=== PATIENT | female | born 2000 | race Caucasian/White ===

== ENCOUNTER 2018-07-23 15:33 | Emergency (ER) | payer OTHER ==
[2018-07-23 17:22] LABS: ADD MAN DIFF? NO
[2018-07-23 17:31] LABS: WHITE BLOOD COUNT 10.2 10^3/ul (4.8-10.8)
[2018-07-23 17:31] LABS: BASOPHILS % 0.2 % (0.0-2.0); EOSINOPHILS # 0.1 10^3/ul (0.0-0.5); EOSINOPHILS % 0.5 % (0.0-7.0); HEMATOCRIT 38.1 % (37.0-47.0); HEMOGLOBIN 12.5 g/dl (12.0-16.0); LYMPHOCYTES # 2.7 10^3/ul (0.8-2.9); LYMPHOCYTES % 26.8 % (18.0-55.0); MEAN CORPUSCULAR HEMOGLOBIN 27.5 pg (29.0-33.0); MEAN CORPUSCULAR HGB CONC 32.8 g/dl (32.0-37.0); MEAN CORPUSCULAR VOLUME 83.7 fl (72.0-104.0); MEAN PLATELET VOLUME 10.4 fl (7.4-10.4); MONOCYTE # 0.7 10^3/ul (0.3-0.9); MONOCYTES % 7.2 % (0.0-13.0); NEUTROPHIL # 6.6 10^3/ul (1.6-7.5); PLATELET COUNT 333 10^3/UL (140-415); RED BLOOD COUNT 4.55 10^6/ul (4.20-5.40); RED CELL DISTRIBUTION WIDTH 13.9 % (11.5-14.5)
[2018-07-23 17:47] LABS: ADD UMIC YES; UR ASCORBIC ACID NEGATIVE (NEGATIVE); UR BACTERIA MANY /HPF (NONE SEEN); UR BILIRUBIN (Dip) NEGATIVE (NEGATIVE); UR BLOOD (Dip) 3+ mg/dL (NEGATIVE); UR CLARITY CLOUDY (CLEAR); UR COLOR RED (YELLOW); UR GLUCOSE (Dip) NEGATIVE (NEGATIVE); UR KETONES (Dip) NEGATIVE (NEGATIVE); UR LEUKOCYTE ESTERASE (Dip) TRACE Leu/ul (NEGATIVE); UR NITRITE (Dip) POSITIVE (NEGATIVE); UR RBC 84 /HPF (0-5); UR SPECIFIC GRAVITY (Dip) 1.008 (1.003-1.030); UR SQUAMOUS EPITHELIAL CELL MODERATE /HPF (FEW); UR TOTAL PROTEIN (Dip) 2+ mg/dl (NEGATIVE); UR UROBILINOGEN (Dip) NEGATIVE (NEGATIVE); UR WBC 11 /HPF (0-5)
[2018-07-23] MEDS: ACETAMINOPHEN 325 MG TAB PO (17:50)
== END 2018-07-23 21:45 | disposition home or self-care (01) ==
LOC: FTE 15:33
DX: O23.41 Unspecified infection of urinary tract in pregnancy, first trimester (principal); O41.8X10 Other specified disorders of amniotic fluid and membranes, first trimester, not applicable or unspecified; O46.8X1 Other antepartum hemorrhage, first trimester; R10.2 Pelvic and perineal pain; Z3A.08 8 weeks gestation of pregnancy
CPT/HCPCS: 36415; 76801; 81001; 84702; 85025; 86900; 86901; 99284-25

== ENCOUNTER 2018-10-27 10:22 | Outpatient (CLI) | payer OTHER | END 2018-10-27 13:38 | disposition home or self-care (01) | LOC: OBT 10:22 → L-D 10:24 → OBT 13:38 | DX: O36.8120 Decreased fetal movements, second trimester, not applicable or unspecified (principal); Z3A.21 21 weeks gestation of pregnancy | CPT/HCPCS: 76815; 76817 ==

== ENCOUNTER 2018-12-28 19:20 | Inpatient (IN) | payer OTHER ==
[2018-12-28 20:15] LABS: ADD MAN DIFF? NO
[2018-12-28 20:19] LABS: WHITE BLOOD COUNT 9.5 10^3/ul (4.8-10.8)
[2018-12-28 20:19] LABS: BASOPHILS % 0.1 % (0.0-2.0); EOSINOPHILS # 0.1 10^3/ul (0.0-0.5); EOSINOPHILS % 1.5 % (0.0-7.0); HEMATOCRIT 32.2 % (37.0-47.0); HEMOGLOBIN 10.6 g/dl (12.0-16.0); LYMPHOCYTES # 1.9 10^3/ul (0.8-2.9); LYMPHOCYTES % 20.3 % (18.0-55.0); MEAN CORPUSCULAR HEMOGLOBIN 28.3 pg (29.0-33.0); MEAN CORPUSCULAR HGB CONC 32.9 g/dl (32.0-37.0); MEAN CORPUSCULAR VOLUME 86.1 fl (72.0-104.0); MEAN PLATELET VOLUME 9.5 fl (7.4-10.4); MONOCYTE # 0.8 10^3/ul (0.3-0.9); MONOCYTES % 8.1 % (0.0-13.0); NEUTROPHIL # 6.6 10^3/ul (1.6-7.5); NEUTROPHILS % 69.2 % (30.0-74.0); PLATELET COUNT 343 10^3/UL (140-415); RED BLOOD COUNT 3.74 10^6/ul (4.20-5.40); RED CELL DISTRIBUTION WIDTH 13.5 % (11.5-14.5)
[2018-12-28 20:36] LABS: RUPTURE FETAL MEMBRANES NEGATIVE (NEGATIVE)
[2018-12-28 21:32] LABS: ADD UMIC YES; UR ASCORBIC ACID NEGATIVE (NEGATIVE); UR BACTERIA FEW /HPF (NONE SEEN); UR BILIRUBIN (Dip) NEGATIVE (NEGATIVE); UR BLOOD (Dip) NEGATIVE (NEGATIVE); UR CLARITY CLOUDY (CLEAR); UR COLOR YELLOW (YELLOW); UR GLUCOSE (Dip) NEGATIVE (NEGATIVE); UR KETONES (Dip) NEGATIVE (NEGATIVE); UR LEUKOCYTE ESTERASE (Dip) 2+ Leu/ul (NEGATIVE); UR NITRITE (Dip) NEGATIVE (NEGATIVE); UR RBC 2 /HPF (0-5); UR SPECIFIC GRAVITY (Dip) 1.008 (1.003-1.030); UR SQUAMOUS EPITHELIAL CELL FEW /HPF (FEW); UR TOTAL PROTEIN (Dip) NEGATIVE (NEGATIVE); UR UROBILINOGEN (Dip) NEGATIVE (NEGATIVE); UR WBC 8 /HPF (0-5)
[2018-12-28] MEDS ORDERED: MAGNESIUM SULFATE 4 GM/100 ML 100 ML (21:52)
[2018-12-28] MEDS: LACTATED RINGER'S 1,000 ML IV (22:02)
[2018-12-28] MEDS: MAGNESIUM SULFATE 4 GM/100 ML 100 ML IV (22:03)
[2018-12-28] MEDS: MAGNESIUM SULFATE 20 GM/500 ML 500 ML IV (22:33)
[2018-12-28] MEDS ORDERED: ACETAMINOPHEN 325 MG TAB PO (23:30)
[2018-12-28 23:45] LABS: ALANINE AMINOTRANSFERASE 10 IU/L (13-69); ALKALINE PHOSPHATASE 119 IU/L (42-121); ANION GAP 11 (5-13); ASPARTATE AMINO TRANSFERASE 53 IU/L (15-46); BILIRUBIN,INDIRECT 0.2 mg/dl (0-1.1); BILIRUBIN,TOTAL 0.2 mg/dl (0.2-1.3); BLOOD UREA NITROGEN 7 mg/dl (7-20); CALCIUM 9.3 mg/dl (8.4-10.2); CARBON DIOXIDE 23 mmol/L (21-31); CHLORIDE 104 mmol/L (97-110); CREATININE 0.42 mg/dl (0.44-1.00); Estimated GFR > 60 mL/min (>60); GLUCOSE 73 mg/dl (70-220); POTASSIUM 3.6 mmol/L (3.5-5.1); SODIUM 138 mmol/L (135-144); TOTAL PROTEIN 6.3 g/dl (6.1-8.1)
[2018-12-28 23:46] LABS: ALBUMIN 3.5 g/dl (3.3-4.9); ALBUMIN/GLOBULIN RATIO 1.25
[2018-12-28] MEDS: BETAMET NA PHOS/AC(6 MG/ML) 2 ML INJ SYG IM (23:56)
[2018-12-29] MEDS: LACTATED RINGER'S 1,000 ML IV ×2 (05:36→17:17)
[2018-12-29] MEDS: MAGNESIUM SULFATE 20 GM/500 ML 500 ML IV (08:35)
[2018-12-29 09:02] LABS: MAGNESIUM 5.9 mg/dl (1.7-2.5)
[2018-12-29] MEDS: DOCUSATE SODIUM 100 MG CAP PO (09:14)
[2018-12-29] MEDS: PRENATAL VITAMIN PO (09:14)
[2018-12-29] MEDS: AL HYDROX/MG HYDROX/SIMETH 30 ML CUP PO (11:23)
[2018-12-29 13:39] LABS: MAGNESIUM 4.7 mg/dl (1.7-2.5)
[2018-12-29] MEDS: BETAMET NA PHOS/AC(6 MG/ML) 2 ML INJ SYG IM (14:41)
[2018-12-29 17:39] LABS: AMPHETAMINE/METHAMPHETAMINE Negative (NEGATIVE); BARBITURATES Negative (NEGATIVE); BENZODIAZEPINES Negative (NEGATIVE); CANNABINOIDS Negative (NEGATIVE); COCAINE Negative (NEGATIVE); OPIATES Negative (NEGATIVE)
[2018-12-29] MEDS: NIFEdipine 10 MG CAP PO (18:06)
[2018-12-29 18:58] LABS: MAGNESIUM 2.8 mg/dl (1.7-2.5)
[2018-12-30] MEDS: NIFEdipine 10 MG CAP PO ×4 (00:29→17:48)
[2018-12-30] MEDS: LACTATED RINGER'S 1,000 ML IV ×3 (01:25→13:48)
[2018-12-30] MEDS: AL HYDROX/MG HYDROX/SIMETH 30 ML CUP PO (07:52)
[2018-12-30] MEDS: DOCUSATE SODIUM 100 MG CAP PO (09:04)
[2018-12-30] MEDS: PRENATAL VITAMIN PO (09:04)
[2018-12-30] MEDS: BETAMET NA PHOS/AC(6 MG/ML) 2 ML INJ SYG IM (13:41)
[2018-12-30] MEDS: PROGESTERONE 100 MG CAP VAG ×2 (19:30→19:52)
== END 2018-12-30 19:50 | disposition home or self-care (01) | DRG 832 ==
LOC: OBT 19:20 → L-D 19:20 → OBT 21:25 → L-D 21:25 → PP1 23:52
PROVIDERS: Obstetrics & Gynecology
DX: O60.03 Preterm labor without delivery, third trimester (principal); O26.873 Cervical shortening, third trimester; Z3A.29 29 weeks gestation of pregnancy
CPT/HCPCS: 76815; 76817; 76818; 80053; 80307; 81001; 83735; 84112; 85025

== ENCOUNTER 2019-02-06 07:39 | Outpatient (CLI) | payer OTHER ==
[2019-02-06 11:16] LABS: ADD MAN DIFF? NO
[2019-02-06 11:22] LABS: BASOPHILS % 0.1 % (0.0-2.0); EOSINOPHILS % 0.2 % (0.0-7.0); HEMATOCRIT 33.9 % (37.0-47.0); HEMOGLOBIN 11.2 g/dl (12.0-16.0); LYMPHOCYTES # 1.7 10^3/ul (0.8-2.9); LYMPHOCYTES % 13.3 % (18.0-55.0); MEAN CORPUSCULAR HEMOGLOBIN 27.9 pg (29.0-33.0); MEAN CORPUSCULAR VOLUME 84.5 fl (72.0-104.0); MEAN PLATELET VOLUME 9.9 fl (7.4-10.4); MONOCYTE # 0.8 10^3/ul (0.3-0.9); MONOCYTES % 6.7 % (0.0-13.0); NEUTROPHIL # 9.8 10^3/ul (1.6-7.5); PLATELET COUNT 318 10^3/UL (140-415); RED BLOOD COUNT 4.01 10^6/ul (4.20-5.40); RED CELL DISTRIBUTION WIDTH 13.7 % (11.5-14.5)
[2019-02-06 11:22] LABS: WHITE BLOOD COUNT 12.4 10^3/ul (4.8-10.8)
[2019-02-06 11:32] LABS: ADD UMIC YES; UR ASCORBIC ACID NEGATIVE (NEGATIVE); UR BACTERIA FEW /HPF (NONE SEEN); UR BILIRUBIN (Dip) NEGATIVE (NEGATIVE); UR BLOOD (Dip) 3+ mg/dL (NEGATIVE); UR CLARITY CLOUDY (CLEAR); UR COLOR YELLOW (YELLOW); UR GLUCOSE (Dip) NEGATIVE (NEGATIVE); UR KETONES (Dip) NEGATIVE (NEGATIVE); UR LEUKOCYTE ESTERASE (Dip) 3+ Leu/ul (NEGATIVE); UR MUCUS FEW /HPF (NONE SEEN); UR NITRITE (Dip) NEGATIVE (NEGATIVE); UR RBC 5 /HPF (0-5); UR SPECIFIC GRAVITY (Dip) 1.013 (1.003-1.030); UR SQUAMOUS EPITHELIAL CELL FEW /HPF (FEW); UR TOTAL PROTEIN (Dip) NEGATIVE (NEGATIVE); UR UROBILINOGEN (Dip) NEGATIVE (NEGATIVE); UR WBC 45 /HPF (0-5)
[2019-02-06] MEDS: ACETAMINOPHEN 325 MG TAB PO (11:39)
== END 2019-02-06 12:55 | disposition home or self-care (01) ==
LOC: OBT 07:39 → L-D 07:41 → OBT 12:55
DX: O23.43 Unspecified infection of urinary tract in pregnancy, third trimester (principal); O62.9 Abnormality of forces of labor, unspecified; Z3A.36 36 weeks gestation of pregnancy
CPT/HCPCS: 76818; 81001; 85025; 87086

== ENCOUNTER 2019-02-25 15:19 | Inpatient (IN) | payer OTHER ==
[2019-02-25] MEDS ORDERED: OXYTOCIN 30 UNITS/LR 500 ML IV (16:00)
[2019-02-25] MEDS ORDERED: CARBOPROST 250 MCG INJ IM (16:00)
[2019-02-25] MEDS ORDERED: BUTORPHANOL 2 MG INJ IV (16:00)
[2019-02-25] MEDS ORDERED: METHYLERGONOVINE 0.2 MG INJ IM (16:00)
[2019-02-25] MEDS ORDERED: LIDOCAINE 1% (MPF) 30 ML INJ INJ (16:00)
[2019-02-25 16:03] LABS: ADD MAN DIFF? NO
[2019-02-25 16:06] LABS: BASOPHILS % 0.3 % (0.0-2.0); EOSINOPHILS % 0.2 % (0.0-7.0); HEMATOCRIT 37.2 % (37.0-47.0); LYMPHOCYTES # 2.8 10^3/ul (0.8-2.9); LYMPHOCYTES % 17.8 % (18.0-55.0); MEAN CORPUSCULAR HEMOGLOBIN 27.1 pg (29.0-33.0); MEAN CORPUSCULAR HGB CONC 32.3 g/dl (32.0-37.0); MEAN PLATELET VOLUME 10.9 fl (7.4-10.4); MONOCYTES % 6.5 % (0.0-13.0); NEUTROPHIL # 11.6 10^3/ul (1.6-7.5); NEUTROPHILS % 73.8 % (30.0-74.0); NUCLEATED RED BLOOD CELLS% 0.1 /100WBC (0.0-0.0); PLATELET COUNT 314 10^3/UL (140-415); RED BLOOD COUNT 4.43 10^6/ul (4.20-5.40); RED CELL DISTRIBUTION WIDTH 13.8 % (11.5-14.5)
[2019-02-25 16:06] LABS: WHITE BLOOD COUNT 15.7 10^3/ul (4.8-10.8)
[2019-02-25] MEDS: LACTATED RINGER'S 1,000 ML IV ×3 (16:20→22:54)
[2019-02-25 16:41] LABS: PROTIME 12.3 Sec (11.9-14.9)
[2019-02-25 16:42] LABS: PARTIAL THROMBOPLASTIN TIME 33.7 Sec (23.0-35.0)
[2019-02-25] MEDS: AMPICILLIN 2 GM/NS (PMX) 100 ML IV (16:47)
[2019-02-25] MEDS: AMPICILLIN 1 GM/NS (PMX) 50 ML IV (20:25)
[2019-02-25] MEDS ORDERED: FENTAnyl 2MCG/ML-ROPIV 0.2% 100 ML (21:24)
[2019-02-25] MEDS ORDERED: DIPHENHYDRAMINE 50 MG INJ IV (21:30)
[2019-02-25] MEDS ORDERED: NALOXONE (0.4 MG/ML) INJ IV (21:30)
[2019-02-25] MEDS ORDERED: ONDANSETRON 4 MG INJ IV (21:30)
[2019-02-26] MEDS: AMPICILLIN 1 GM/NS (PMX) 50 ML IV ×3 (00:42→07:42)
[2019-02-26] MEDS: LACTATED RINGER'S 1,000 ML IV ×2 (04:19→06:17)
[2019-02-26] MEDS: FENTAnyl 2MCG/ML-ROPIV 0.2% 100 ML BAG EPI (05:51)
[2019-02-26] MEDS: OXYTOCIN 30 UNITS/LR 500 ML IV ×3 (11:45→16:19)
[2019-02-26] MEDS: MISOPROSTOL 200 MCG TAB PR (11:47)
[2019-02-26] MEDS ORDERED: HYDROCODONE/APAP (10/325) TAB GTB (12:00)
[2019-02-26] MEDS: HYDROCODONE/APAP (10/325) TAB GTB (12:00)
[2019-02-26 15:16] LABS: RAPID PLASMA REAGIN NONREACTIVE (NR)
[2019-02-26] MEDS ORDERED: ONDANSETRON 4 MG INJ IV (17:30)
[2019-02-26] MEDS ORDERED: OXYCODONE/ASPIRIN (4.88/325) TAB PO (17:30)
[2019-02-26] MEDS ORDERED: DIPHENHYDRAMINE 50 MG INJ IV (17:30)
[2019-02-26] MEDS ORDERED: MISOPROSTOL 200 MCG TAB PR (17:30)
[2019-02-26] MEDS ORDERED: DEXTROSE 5%-LR 1,000 ML IV (17:30)
[2019-02-26] MEDS ORDERED: ZOLPIDEM 5 MG TAB PO (17:30)
[2019-02-26] MEDS ORDERED: ACETAMINOPHEN 325 MG TAB PO (17:30)
[2019-02-26] MEDS ORDERED: DIBUCAINE 1% 30 GM OINT TOP (17:30)
[2019-02-26] MEDS ORDERED: METHYLERGONOVINE 0.2 MG INJ IM (17:30)
[2019-02-26] MEDS ORDERED: OXYTOCIN 30 UNITS/LR 500 ML IV (17:30)
[2019-02-26] MEDS ORDERED: CARBOPROST 250 MCG INJ IM (17:30)
[2019-02-26] MEDS: IBUPROFEN 600 MG TAB PO ×2 (17:59→23:56)
[2019-02-26] MEDS ORDERED: CEPHALEXIN 500 MG CAP PO (18:00)
[2019-02-26] MEDS: SENNA/DOCUSATE NA (8.6MG/50MG) TAB PO (19:55)
[2019-02-26] MEDS: BENZOCAINE 20% 56 ML SPRAY TOP (19:55)
[2019-02-26] MEDS: LANOLIN HPA 1 PKT TOP (19:55)
[2019-02-26] MEDS: WITCH HAZEL/GLYCERIN PAD PR (19:55)
[2019-02-26] MEDS: LACTATED RINGER'S 1,000 ML IV* (20:57)
[2019-02-27] MEDS: IBUPROFEN 600 MG TAB PO ×4 (06:01→23:50)
[2019-02-27 06:41] LABS: ADD MAN DIFF? NO
[2019-02-27 06:48] LABS: WHITE BLOOD COUNT 18.6 10^3/ul (4.8-10.8)
[2019-02-27 06:48] LABS: BASOPHILS % 0.1 % (0.0-2.0); EOSINOPHILS % 0.2 % (0.0-7.0); HEMATOCRIT 27.5 % (37.0-47.0); HEMOGLOBIN 9.1 g/dl (12.0-16.0); LYMPHOCYTES # 2.5 10^3/ul (0.8-2.9); LYMPHOCYTES % 13.3 % (18.0-55.0); MEAN CORPUSCULAR HEMOGLOBIN 27.7 pg (29.0-33.0); MEAN CORPUSCULAR HGB CONC 33.1 g/dl (32.0-37.0); MEAN CORPUSCULAR VOLUME 83.6 fl (72.0-104.0); MEAN PLATELET VOLUME 10.8 fl (7.4-10.4); MONOCYTE # 1.1 10^3/ul (0.3-0.9); NEUTROPHIL # 14.9 10^3/ul (1.6-7.5); NEUTROPHILS % 79.6 % (30.0-74.0); PLATELET COUNT 205 10^3/UL (140-415); RED BLOOD COUNT 3.29 10^6/ul (4.20-5.40); RED CELL DISTRIBUTION WIDTH 14.2 % (11.5-14.5)
[2019-02-27] MEDS: OXYTOCIN 30 UNITS/LR 500 ML IV (07:35)
[2019-02-27] MEDS: SENNA/DOCUSATE NA (8.6MG/50MG) TAB PO (08:48)
[2019-02-27] MEDS: CEPHALEXIN 500 MG CAP PO ×3 (11:15→23:50)
[2019-02-27] MEDS: LANOLIN HPA 1 PKT TOP (17:38)
[2019-02-28] MEDS: CEPHALEXIN 500 MG CAP PO ×3 (05:39→17:32)
[2019-02-28] MEDS: IBUPROFEN 600 MG TAB PO ×3 (05:40→17:32)
[2019-02-28 07:46] LABS: ADD MAN DIFF? NO
[2019-02-28 07:52] LABS: WHITE BLOOD COUNT 8.6 10^3/ul (4.8-10.8)
[2019-02-28 07:52] LABS: BASOPHILS % 0.1 % (0.0-2.0); EOSINOPHILS # 0.1 10^3/ul (0.0-0.5); EOSINOPHILS % 0.7 % (0.0-7.0); HEMATOCRIT 27.8 % (37.0-47.0); HEMOGLOBIN 8.8 g/dl (12.0-16.0); LYMPHOCYTES # 1.8 10^3/ul (0.8-2.9); LYMPHOCYTES % 20.7 % (18.0-55.0); MEAN CORPUSCULAR HEMOGLOBIN 27.2 pg (29.0-33.0); MEAN CORPUSCULAR HGB CONC 31.7 g/dl (32.0-37.0); MEAN CORPUSCULAR VOLUME 86.1 fl (72.0-104.0); MEAN PLATELET VOLUME 10.9 fl (7.4-10.4); MONOCYTE # 0.7 10^3/ul (0.3-0.9); MONOCYTES % 7.5 % (0.0-13.0); NEUTROPHILS % 69.6 % (30.0-74.0); PLATELET COUNT 237 10^3/UL (140-415); RED BLOOD COUNT 3.23 10^6/ul (4.20-5.40); RED CELL DISTRIBUTION WIDTH 14.4 % (11.5-14.5)
[2019-02-28] MEDS: DIPHTH/TET/ACEL PERTUSS (ADULT) 0.5 ML VIAL IM* (09:54)
[2019-02-28] MEDS: MEASLES,MUMPS,RUBELLA VACCINE INJ SC* (09:54)
[2019-02-28] MEDS: LANOLIN HPA 1 PKT TOP ×2 (15:04)
[2019-02-28] MEDS: SENNA/DOCUSATE NA (8.6MG/50MG) TAB PO (17:31)
== END 2019-02-28 18:20 | disposition home or self-care (01) | DRG 807 ==
LOC: OBT 15:19 → PP1 02-26 16:55 → L-D 15:20 → OBT 15:28 → L-D 15:28
PROVIDERS: Obstetrics & Gynecology
PROC: 4A1HXCZ Monitoring of Products of Conception, Cardiac Rate, External Approach (ICD-10-PCS; 2019-02-25)
PROC: 10E0XZZ Delivery of Products of Conception, External Approach (ICD-10-PCS; principal; 2019-02-26)
PROC: 0KQM0ZZ Repair Perineum Muscle, Open Approach (ICD-10-PCS; 2019-02-26)
DX: O99.824 Streptococcus B carrier state complicating childbirth (principal); Z37.0 Single live birth; O70.1 Second degree perineal laceration during delivery; Z3A.39 39 weeks gestation of pregnancy
CPT/HCPCS: 62322; 85025; 85610; 85730; 86592; 86850; 86900; 86901; 87086